=== PATIENT | male | born 1995 | race African-American/Black ===

== ENCOUNTER 2017-03-07 14:40 | Inpatient (IN) ==
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
[2017-03-07] MEDS ORDERED: ERTAPENEM 1 G in NS 100 ML IV ONE (15:52)
[2017-03-07] MEDS ORDERED: AMPICILLIN/SULBACTAM 3 G in NS 100 ML IV ONE (16:04)
[2017-03-07] MEDS: SALINE FLUSH 10ml SYRINGE IVF PRN ×2 (16:45→22:02)
[2017-03-07 17:09] VITALS: BMI 20.5
[2017-03-07] MEDS ORDERED: IBUPROFEN 800 MG TABLET PO ONE (17:55)
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
[2017-03-07] MEDS ORDERED: AMPICILLIN/SULBACTAM 3 G in NS 100 ML IV SCH (18:30)
[2017-03-07] MEDS ORDERED: IBUPROFEN 800 MG TABLET PO PRN (18:55)
[2017-03-07] MEDS ORDERED: HYDROCODONE/APAP 5mg/325mg TABLET PO PRN (18:56)
[2017-03-07] MEDS ORDERED: ONDANSETRON 4 MG/2 ML INJECTION IVP PRN (18:57)
[2017-03-07] MEDS ORDERED: NS FLUSH BAG 500ml IV PRN (21:58)
[2017-03-07] MEDS: AMPICILLIN/SULBACTAM 3 G in NS 100 ML IV SCH (22:02)
[2017-03-07 23:12] VITALS: PULSE 63; RESP 16; TEMP 97.2
[2017-03-08] MEDS: AMPICILLIN/SULBACTAM 3 G in NS 100 ML IV SCH ×2 (04:04→09:53)
[2017-03-08] MEDS: SALINE FLUSH 10ml SYRINGE IVF PRN ×2 (04:04→10:46)
[2017-03-08 07:36] VITALS: BP 136/72; O2SAT 99
--- NOTE | 2017-03-08 08:28 | Magnetic Resonance Report ---
Indication: cellulitis PROCEDURE: MR hand RT wo con: Encounter: Initial Comparison: Radiograph dated March 07, 2017 Technique: Multiplanar multisequence MR imaging of the right hand was performed without contrast. Findings: The contents of the carpal tunnel appear normal. The digital flexor tendons appear intact. Extensor tendons are intact. There is extensive subcutaneous edema at the dorsum of the hand with edema insinuating around the ring finger this extends along the extensor tendon sheaths with greatest involvement of the ring and small finger tendons. There is also some fluid deep to the extensor tendon at the metacarpophalangeal joint area with fluid extending also a round the flexor tendon of the ring finger near the exiting of the carpal tunnel. There is some pulmonary edema in this location as well. No acute fracture. Bone marrow signal intensity is normal. Impression: Extensive cellulitis involving the dorsum of the hand with evidence of extensor tenosynovitis and deep invasion of the palmar fascia with a flexor tenosynovitis at the ring finger. Hand surgical consultation is recommended. .
--- NOTE | 2017-03-08 09:13 | Progress Note ---
Subjective: The patient was seen at 9:05 am. He reports his hand feels better. He continues to have limited range of motion especially with his index finger of his right hand. He is tolerating IV ampicillin sulbactam without difficulty. The patient reports doing well and slept well during the night. Denies fevers, chills, sweats. Denies sore throat, shortness of breath, dyspnea on exertion, cough, sputum production, chest pain. Denies nausea, vomiting or diarrhea. Is urinating without difficulty, denies dysuria. Objective Vital signs: Temperature 97.2 F 03/08/17 07:35 Pulse Rate 63 03/08/17 07:35 Respiratory Rate 16 03/08/17 07:35 Blood Pressure 136/72 03/08/17 07:35 Pulse Oximetry 99 03/08/17 07:35 Height/Weight/BMI: Height 6 ft 3 in Weight 163 lb 9.328 oz Body Mass Index 20.5 - Additional findings Additional findings: In general, the patient is alert and oriented 3, cooperative with exam, and in no respiratory distress. HEENT: Head is atraumatic, normocephalic, no conjunctival petechiae, no oral thrush, mucous membranes are moist and pink. Lungs: Clear to auscultation without wheezes, crackles or rhonchi CV: Regular rate and rhythm without murmur Abdomen: Soft, nontender, bowel sounds are present, there is no guarding no rebound. Extremities: No clubbing, no cyanosis. The right hand has persistent swelling with 2 small lacerations that have been minimal amount of bloody drainage noted. He has a limited ability of making a fist however cannot extend or bend his right index finger from its resting position. Skin: Warm and dry no sign of rash Neuro: Patient is alert IV access: Left forearm Results - Labs CBC & Chem 7: 03/08/17 04:31 03/07/17 16:10 Microbiology Results: Microbiology 03/07/17 19:24 Peripheral/Iv Start Blood Culture - Preliminary Culture Initiated - Results Pending 03/07/17 19:29 Peripheral/Iv Start Blood Culture - Preliminary Culture Initiated - Results Pending - Imaging and Cardiology Abdominal x-ray Status: image reviewed by me Additional comments: MRI of the right hand from March 07-shows extensive cellulitis involving the dorsum of the hand with evidence of extensor tenosynovitis and deep invasion of the palmar fascia with a flexor tenosynovitis at the right ring finger. Hand surgical consultation is recommended. Assessment and Plan (1) Cellulitis of hand Current visit: Yes Status: Acute Assessment and Plan: Assessment and plan: Extensor tenosynovitis and deep invasion of the palmar fascia with a flexor T no synovitis of the right ring finger. The Gram stain of the right hand and in the ED on March 07 showed few gram-positive cocci in no neutrophil seen few epithelial cells and early growth at this point. Blood cultures 2 are negative. Plan: Have discussed the patient's care with Dr. Adams Sibley, orthopedic hand surgeon, at [facility] and we will transfer the patient to the hospitalist service at [facility] for anticipated debridement and further surgical management of the patient's right hand. The patient and his mother are aware. Sepsis Assessment - Evaluation Sepsis screening result: No Definite Risk Hospital Course Summary Disclaimer: The visit summary below is not to be considered part of the above Progress Note.
--- NOTE | 2017-03-08 09:58 | Discharge Instructions ---
Discharge Plan - Med Rec/Dispo Referrals/Follow Up: Raul Rodriguez MD [Physician] - 1 Week Additional Instructions: Please see summary. We will send a disc from radiology with a copy of the MRI and plain films of his right hand. Prescriptions: New Ampicillin/Sulbactam [Unasyn] 3 g IV Q6H #1 vial Discharge Instructions/Outpatient Orders: Final Provider Discharge Instructions Location: Determined By Patient - Disposition 01 Discharged Home, Self-Care
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
== END 2017-03-08 10:00 | disposition home or self-care (01) | DRG 603 ==
LOC: ED 14:40 → MED 16:44
PROVIDERS: ADMIT Internal Medicine Infectious Disease; ATTEND Internal Medicine Infectious Disease